=== PATIENT | female | born 1995 | race Caucasian/White ===

== ENCOUNTER 2017-09-22 08:35 | Emergency (ER) | payer MEDICAID ==
[~2017-09-22] VITALS: Ht 165.1 cm; Wt 123.0 kg
[~2017-09-22 08:35] MED LIST: ACET-2708 MT; DICL500C MT; MICO45CR75 VG; NYST15OI TP; ONDA4TAB5 MT; PNV1TABL76 MT
[2017-09-22] MEDS ORDERED: ACETAMINOPHEN WITH CODEINE 300/30MG TABLET PO STA (10:05)
[2017-09-22] MEDS ORDERED: ACETAMINOPHEN 325MG TABLET PO ONE (10:15)
[2017-09-22] MEDS ORDERED: CEPHALEXIN 500MG CAPSULE PO ONE (10:15)
[2017-09-22 10:58] LABS: BASOPHILS % 0.2 % (0.0-2.0); EOSINOPHILS % 0.4 % (0.0-5.0); HEMATOCRIT. 36.4 % (36.0-48.0); HEMOGLOBIN. 12.3 g/dL (12.0-16.0); LYMPHOCYTES % 16.8 % (20.0-50.0); MEAN CORPUSCULAR HEMOGLOBIN 30.6 pg (28.0-32.0); MEAN CORPUSCULAR VOLUME 90.4 fL (81.0-99.0); MEAN PLATELET VOLUME 8.7 fl (7.4-10.4); MONOCYTES % 6.4 % (2.0-8.0); NEUTROPHILS % 76.2 % (40.0-76.0); PLATELET 252 x1000/uL (130-400); RED BLOOD CELL COUNT 4.03 mill/uL (4.2-5.4); RED CELL DISTRIBUTION WIDTH 13.3 % (11.6-14.6)
[2017-09-22 11:02] LABS: CHLORIDE 104 mEq/L (98-107)
[2017-09-22 12:00] VITALS: BP 136/70
== END 2017-09-22 12:19 | disposition home or self-care (01) ==
LOC: ER 08:44
DX: L02.211 Cutaneous abscess of abdominal wall (principal); J45.909 Unspecified asthma, uncomplicated
CPT/HCPCS: 36415; 80053; 83605; 85025; 87040; 99284

== ENCOUNTER 2018-03-26 04:34 | Observation (INO) | payer MEDICAID ==
[~2018-03-26] VITALS: Ht 165.1 cm; Wt 140.6 kg
[~2018-03-26 04:34] MED LIST changes: -ACET-2708 MT; +CLIN300C11 PO; -DICL500C MT; -MICO45CR75 VG; -NYST15OI TP; -ONDA4TAB5 MT
== END 2018-03-26 05:45 | disposition home or self-care (01) ==
LOC: L&D 04:34
PROVIDERS: ADMIT Specialist; ATTEND Specialist
DX: O62.9 Abnormality of forces of labor, unspecified (principal); Z3A.37 37 weeks gestation of pregnancy
CPT/HCPCS: 99281; G0378

== ENCOUNTER 2018-04-10 17:29 | Observation (INO) | payer MEDICAID ==
[~2018-04-10] VITALS: Ht 165.1 cm; Wt 143.8 kg
[~2018-04-10 17:29] MED LIST changes: -CLIN300C11 PO
== END 2018-04-10 19:00 | disposition home or self-care (01) ==
LOC: L&D 17:29
PROVIDERS: ADMIT Obstetrics & Gynecology; ATTEND Obstetrics & Gynecology
DX: O62.9 Abnormality of forces of labor, unspecified (principal); Z3A.39 39 weeks gestation of pregnancy
CPT/HCPCS: G0378 ×3

== ENCOUNTER 2018-04-14 20:42 | Observation (INO) | payer MEDICAID ==
[~2018-04-14] VITALS: Ht 165.1 cm; Wt 143.8 kg
== END 2018-04-14 23:05 | disposition home or self-care (01) ==
LOC: 8 EST LDRP 20:42
PROVIDERS: ADMIT Specialist; ATTEND Specialist
DX: O48.0 Post-term pregnancy (principal); O62.9 Abnormality of forces of labor, unspecified; O26.893 Other specified pregnancy related conditions, third trimester; N89.8 Other specified noninflammatory disorders of vagina; Z3A.40 40 weeks gestation of pregnancy
CPT/HCPCS: 99281; G0378

== ENCOUNTER 2018-04-16 12:23 | Inpatient (IN) | payer MEDICAID ==
[~2018-04-16] VITALS: Ht 165.1 cm; Wt 144.2 kg
[2018-04-16] MEDS ORDERED: LIDOCAINE HCL 1% 20ML VIAL (Pyxis) INJ INFIL SCH (13:45)
[2018-04-16] MEDS ORDERED: NALOXONE HCL 0.4 MG/ML 1ML VIAL IM PRN (13:45)
[2018-04-16] MEDS ORDERED: CARBOPROST TROMETHAMINE 250 MCG/ML AMPUL IM PRN (13:45)
[2018-04-16] MEDS ORDERED: METHYLERGONOVINE MALEATE 0.2 MG/ML IM PRN (13:45)
[2018-04-16] MEDS: LACTATED RINGERS 1,000 ML IV SCH ×2 (14:07→20:43)
[2018-04-16 14:45] LABS: BASOPHILS % 0.2 % (0.0-2.0); EOSINOPHILS % 1.1 % (0.0-5.0); HEMATOCRIT. 38.3 % (36.0-48.0); LYMPHOCYTES % 25.1 % (20.0-50.0); MEAN PLATELET VOLUME 9.5 fl (7.4-10.4); MONOCYTES % 9.3 % (2.0-8.0); NEUTROPHILS % 64.3 % (40.0-76.0); PLATELET 181 x1000/uL (130-400); RED BLOOD CELL COUNT 4.07 mill/uL (4.2-5.4); RED CELL DISTRIBUTION WIDTH 14.8 % (11.6-14.6)
[2018-04-16 14:47] LABS: CLARITY URINE CLOUDY (CLEAR); COLOR URINE YELLOW (YELLOW); KETONES URINE NEGATIVE (NEGATIVE); LEUKOCYTE ESTERASE URINE NEGATIVE (NEGATIVE); NITRITE URINE NEGATIVE (NEGATIVE); OCCULT BLOOD URINE 1+ (NEGATIVE); PROTEIN URINE 3+ (NEGATIVE); SPECIFIC GRAVITY URINE 1.023 (1.005-1.030)
[2018-04-16 14:53] LABS: INR 0.9; PARTIAL THROMBOPLASTIN TIME 27.5 sec (23.4-31.0); PROTHROMBIN TIME 9.1 sec (9.1-11.1)
[2018-04-16 15:06] LABS: *AMPHETAMINES SCREEN URINE NEGATIVE (NEGATIVE); *BARBITURATES SCREEN URINE NEGATIVE (NEGATIVE); *BENZODIAZEPINES SCREEN URINE NEGATIVE (NEGATIVE); *COCAINE SCREEN URINE NEGATIVE (NEGATIVE); METHADONE URINE SCREEN NEGATIVE (NEGATIVE); OPIATES URINE SCREEN NEGATIVE (NEGATIVE)
[2018-04-16 15:07] LABS: CANNABINOID URINE SCREEN NEGATIVE (NEGATIVE); PHENCYCLIDINE URINE SCREEN NEGATIVE (NEGATIVE)
[2018-04-16 15:29] LABS: HEPATITIS B SURFACE ANTIGEN NEGATIVE
[2018-04-16] MEDS: MISOPROSTOL 100MCG TABLET VG SCH ×2 (17:00→21:54)
[2018-04-16] MEDS: BUTORPHANOL TARTRATE 2 MG/ML VIAL IV PRN (22:28)
[2018-04-17] MEDS: MISOPROSTOL 100MCG TABLET VG SCH (02:20)
[2018-04-17] MEDS: LACTATED RINGERS 1,000 ML IV SCH ×3 (04:52→09:43)
[2018-04-17] MEDS: BUTORPHANOL TARTRATE 2 MG/ML VIAL IV PRN (05:07)
[2018-04-17] MEDS: DEXT 5%/LR + PITOCIN 20UNITS/L 1,000 ML IV SCH (06:01)
[2018-04-17] MEDS ORDERED: BUPIVACAINE HCL/NS/PF EPIDURAL 100 ML EP ONE ×2 (08:01→21:22)
[2018-04-17] MEDS ORDERED: FENTANYL CITRATE/PF 50MCG/ML 5ML VIAL ONE (08:01)
[2018-04-17] MEDS ORDERED: BUPIVACAINE HCL/PF 0.25% (2.5MG/ML) 10ML ONE (08:01)
[2018-04-17] MEDS ORDERED: ONDANSETRON HCL 4MG/2ML INJ IV NR (09:00)
[2018-04-17] MEDS ORDERED: BUPIVACAINE HCL/NS/PF EPIDURAL 100 ML EP SCH (09:15)
[2018-04-17 14:14] LABS: BASOPHILS % 0.1 % (0.0-2.0); HEMATOCRIT. 39.6 % (36.0-48.0); HEMOGLOBIN. 13.3 g/dL (12.0-16.0); LYMPHOCYTES % 10.7 % (20.0-50.0); MEAN CORPUSCULAR HEMOGLOBIN 31.8 pg (28.0-32.0); MEAN PLATELET VOLUME 9.3 fl (7.4-10.4); MONOCYTES % 6.5 % (2.0-8.0); NEUTROPHILS % 82.7 % (40.0-76.0); PLATELET 183 x1000/uL (130-400); RED BLOOD CELL COUNT 4.17 mill/uL (4.2-5.4); RED CELL DISTRIBUTION WIDTH 14.7 % (11.6-14.6)
[2018-04-17 14:17] LABS: CHLORIDE 106 mEq/L (98-107)
[2018-04-17] MEDS ORDERED: LIDOCAINE HCL/PF 2% 20MG/ML 5 ML/VIAL ONE ×3 (14:20→20:15)
[2018-04-17 14:30] LABS: D-DIMER 3.77 mg/L FEU (<0.50); INR 0.9; PARTIAL THROMBOPLASTIN TIME 27.4 sec (23.4-31.0); PROTHROMBIN TIME 9.2 sec (9.1-11.1)
[2018-04-17] MEDS ORDERED: NALOXONE HCL 0.4 MG/ML 1ML VIAL IM PRN (14:30)
[2018-04-17] MEDS ORDERED: BUTORPHANOL TARTRATE 2 MG/ML VIAL IV PRN (14:30)
[2018-04-17] MEDS ORDERED: METHYLERGONOVINE MALEATE 0.2 MG/ML IM PRN (14:30)
[2018-04-17] MEDS ORDERED: CARBOPROST TROMETHAMINE 250 MCG/ML AMPUL IM PRN (14:30)
[2018-04-17] MEDS ORDERED: LIDOCAINE HCL 1% 20ML VIAL (Pyxis) INJ INFIL SCH (14:30)
[2018-04-17 14:48] LABS: CLARITY URINE CLEAR (CLEAR); COLOR URINE YELLOW (YELLOW); KETONES URINE NEGATIVE (NEGATIVE); LEUKOCYTE ESTERASE URINE NEGATIVE (NEGATIVE); NITRITE URINE NEGATIVE (NEGATIVE); OCCULT BLOOD URINE 1+ (NEGATIVE); PH URINE 7.5 (4.5-8.0); PROTEIN URINE 1+ (NEGATIVE); SPECIFIC GRAVITY URINE 1.008 (1.005-1.030); UROBILINOGEN URINE 0.2 E.U./dL (0.2-1.0)
[2018-04-17] MEDS ORDERED: MAGNESIUM 4 G PREMIX 100 ML IV NR (15:45)
[2018-04-17] MEDS ORDERED: FENTANYL CITRATE/PF 50MCG/ML 2ML VIAL ONE ×2 (15:49→21:05)
[2018-04-17] MEDS ORDERED: PENICILLIN G POTASSIUM 5 MMU in DEXT 5% WATER 100 ML IV NR (16:00)
[2018-04-17] MEDS: ACETAMINOPHEN 500MG TABLET PO PRN ×2 (16:16→23:49)
[2018-04-17] MEDS: MAGNESIUM 20 G PREMIX (L & D) 500 ML IV SCH (16:54)
[2018-04-17] MEDS: PENICILLIN G POTASSIUM 2.5 MMU in DEXTROSE 5% WATER 50 ML IV SCH ×2 (19:36→23:30)
[2018-04-17] MEDS ORDERED: LIDOCAINE HCL 2%/EPINEPHRINE/PF 10 ML VIAL ONE (22:17)
[2018-04-18] MEDS: MAGNESIUM 20 G PREMIX (L & D) 500 ML IV SCH ×2 (02:40→12:58)
[2018-04-18] MEDS: PENICILLIN G POTASSIUM 2.5 MMU in DEXTROSE 5% WATER 50 ML IV SCH ×4 (03:30→16:24)
[2018-04-18] MEDS ORDERED: BUPIVACAINE HCL/NS/PF EPIDURAL 100 ML EP ONE ×2 (03:41→10:02)
[2018-04-18] MEDS ORDERED: FENTANYL CITRATE/PF 50MCG/ML 2ML VIAL ONE ×2 (03:41→10:02)
[2018-04-18] MEDS ORDERED: LIDOCAINE HCL 2%/EPINEPHRINE/PF 10 ML VIAL ONE ×2 (06:10→11:45)
[2018-04-18] MEDS: ACETAMINOPHEN 500MG TABLET PO PRN ×2 (08:50→18:01)
[2018-04-18] MEDS ORDERED: MISOPROSTOL 200MCG TABLET ONE (13:06)
[2018-04-18] MEDS ORDERED: MISOPROSTOL 200MCG TABLET PO ONE (17:45)
[2018-04-18] MEDS: DEXT 5%/LR + PITOCIN 20UNITS/L 1,000 ML IV SCH ×2 (18:02→18:04)
[2018-04-18] MEDS ORDERED: DEXT 5%/LR + PITOCIN 20UNITS/L 1,000 ML IV SCH (18:28)
[2018-04-18] MEDS ORDERED: DIPHENHYDRAMINE 25MG CAPSULE PO PRN (18:30)
[2018-04-18] MEDS ORDERED: BENZOCAINE/LANOLIN/ALOE VERA SPRAY TOP PRN (18:30)
[2018-04-18] MEDS ORDERED: HEMORRHOIDAL SUPP PR PRN (18:30)
[2018-04-18] MEDS ORDERED: GLYCERIN/WITCH HAZEL LEAF MEDICATED PAD TOP PRN (18:30)
[2018-04-18] MEDS ORDERED: LANOLIN OINT 0.25 GM TUBE TOP PRN (18:30)
[2018-04-18] MEDS ORDERED: GENTAMICIN SULFATE 180 MG in SODIUM CHLORIDE 0.9% 100 ML IV NR (19:00)
[2018-04-18 20:23] LABS: HEMATOCRIT. 28.6 % (36.0-48.0); HEMOGLOBIN. 9.6 g/dL (12.0-16.0); MEAN CORPUSCULAR VOLUME 95.2 fL (81.0-99.0); MEAN PLATELET VOLUME 9.2 fl (7.4-10.4); PLATELET 146 x1000/uL (130-400); RED CELL DISTRIBUTION WIDTH 14.6 % (11.6-14.6)
[2018-04-18 20:48] LABS: PLATELET ESTIMATE NORMAL
[2018-04-18] MEDS: AMPICILLIN 2,000 MG in SODIUM CHLORIDE 0.9% 100 ML IV SCH (21:14)
[2018-04-18] MEDS ORDERED: MAGNESIUM 20 G PREMIX (L & D) 500 ML IV SCH (22:00)
[2018-04-18 23:10] VITALS: BP 122/69
[2018-04-18] MEDS: ACETAMINOPHEN WITH CODEINE 300/30MG TABLET PO PRN (23:28)
[2018-04-19] VITALS (7 sets, daily range): BP systolic 99–129; BP diastolic 48–64
[2018-04-19] MEDS: AMPICILLIN 2,000 MG in SODIUM CHLORIDE 0.9% 100 ML IV SCH ×4 (02:38→23:10)
[2018-04-19] MEDS: IBUPROFEN 800MG TABLET PO PRN ×2 (05:04→17:14)
[2018-04-19 06:50] LABS: BASOPHILS % 0.1 % (0.0-2.0); EOSINOPHILS % 0.1 % (0.0-5.0); HEMATOCRIT. 22.1 % (36.0-48.0); HEMOGLOBIN. 7.5 g/dL (12.0-16.0); LYMPHOCYTES % 13.3 % (20.0-50.0); MEAN CORPUSCULAR HEMOGLOBIN 32.2 pg (28.0-32.0); MEAN PLATELET VOLUME 9.1 fl (7.4-10.4); MONOCYTES % 2.8 % (2.0-8.0); NEUTROPHILS % 83.7 % (40.0-76.0); PLATELET 120 x1000/uL (130-400); RED BLOOD CELL COUNT 2.33 mill/uL (4.2-5.4); RED CELL DISTRIBUTION WIDTH 14.7 % (11.6-14.6)
[2018-04-19] MEDS ORDERED: GENTAMICIN 120MG PREMIX 100 ML IV SCH (07:30)
[2018-04-19] MEDS: PRENATAL VIT/FE FUMARATE/FA TABLET PO SCH (08:47)
[2018-04-19] MEDS: SIMETHICONE 80MG TABLET CHEW PO SCH ×4 (08:48→21:26)
[2018-04-19] MEDS: FERROUS SULFATE 325MG TABLET PO SCH ×3 (08:48→18:13)
[2018-04-19] MEDS ORDERED: MEDROXYPROGESTERONE ACETATE 150MG/ML VIAL IM NR (09:00)
[2018-04-19] MEDS ORDERED: TETANUS, DIPHTHERIA, PERTUSSIS VAC/PF 0.5ML (>7YR OLD) IM ONE (12:00)
[2018-04-19] MEDS: GENTAMICIN 120MG PREMIX 100 ML IV SCH (20:42)
[2018-04-19] MEDS ORDERED: INFLUENZA VIRUS VACCINE(AFLURIA) 0.5ML SYR IM ONE (21:00)
[2018-04-19] MEDS: DOCUSATE SODIUM 100MG CAPSULE PO SCH (21:26)
[2018-04-20] VITALS (7 sets, daily range): BP systolic 102–128; BP diastolic 48–63
[2018-04-20] MEDS: ACETAMINOPHEN WITH CODEINE 300/30MG TABLET PO PRN ×2 (00:22→20:23)
[2018-04-20] MEDS: AMPICILLIN 2,000 MG in SODIUM CHLORIDE 0.9% 100 ML IV SCH ×4 (04:56→22:37)
[2018-04-20 05:27] LABS: BASOPHILS % 0.2 % (0.0-2.0); EOSINOPHILS % 0.7 % (0.0-5.0); HEMATOCRIT. 21.2 % (36.0-48.0); LYMPHOCYTES % 15.9 % (20.0-50.0); MEAN CORPUSCULAR HEMOGLOBIN 31.6 pg (28.0-32.0); MEAN CORPUSCULAR VOLUME 95.6 fL (81.0-99.0); MEAN PLATELET VOLUME 9.2 fl (7.4-10.4); MONOCYTES % 2.8 % (2.0-8.0); NEUTROPHILS % 80.4 % (40.0-76.0); PLATELET 149 x1000/uL (130-400); RED BLOOD CELL COUNT 2.22 mill/uL (4.2-5.4); RED CELL DISTRIBUTION WIDTH 14.6 % (11.6-14.6)
[2018-04-20] MEDS: FERROUS SULFATE 325MG TABLET PO SCH ×3 (07:30→16:42)
[2018-04-20] MEDS: SIMETHICONE 80MG TABLET CHEW PO SCH ×4 (08:00→21:03)
[2018-04-20] MEDS: PRENATAL VIT/FE FUMARATE/FA TABLET PO SCH (09:00)
[2018-04-20] MEDS: GENTAMICIN 120MG PREMIX 100 ML IV SCH ×2 (09:00→21:02)
[2018-04-20] MEDS: ACETAMINOPHEN 500MG TABLET PO PRN (14:14)
[2018-04-20] MEDS ORDERED: MEDROXYPROGESTERONE ACETATE 150MG/ML VIAL IM NR (17:00)
[2018-04-20 17:51] LABS: BASOPHILS % 0.3 % (0.0-2.0); EOSINOPHILS % 0.8 % (0.0-5.0); HEMATOCRIT. 22.1 % (36.0-48.0); HEMOGLOBIN. 7.4 g/dL (12.0-16.0); LYMPHOCYTES % 18.9 % (20.0-50.0); MEAN CORPUSCULAR HEMOGLOBIN 31.6 pg (28.0-32.0); MEAN CORPUSCULAR VOLUME 94.7 fL (81.0-99.0); MEAN PLATELET VOLUME 8.9 fl (7.4-10.4); MONOCYTES % 4.6 % (2.0-8.0); NEUTROPHILS % 75.4 % (40.0-76.0); PLATELET 162 x1000/uL (130-400); RED BLOOD CELL COUNT 2.34 mill/uL (4.2-5.4); RED CELL DISTRIBUTION WIDTH 14.6 % (11.6-14.6)
[2018-04-20] MEDS: DOCUSATE SODIUM 100MG CAPSULE PO SCH (21:03)
[2018-04-21] MEDS: IBUPROFEN 800MG TABLET PO PRN (03:56)
[2018-04-21] MEDS: AMPICILLIN 2,000 MG in SODIUM CHLORIDE 0.9% 100 ML IV SCH (04:44)
[2018-04-21 05:58] VITALS: BP 103/53
[2018-04-21 08:10] VITALS: BP 117/57
[2018-04-21] MEDS: PRENATAL VIT/FE FUMARATE/FA TABLET PO SCH (09:00)
[2018-04-21] MEDS: GENTAMICIN 120MG PREMIX 100 ML IV SCH (09:00)
[2018-04-21] MEDS: FERROUS SULFATE 325MG TABLET PO SCH (09:00)
[2018-04-21] MEDS: SIMETHICONE 80MG TABLET CHEW PO SCH (09:01)
[2018-04-21] MEDS ORDERED: GENTAMICIN SULFATE 140 MG in SODIUM CHLORIDE 0.9% 100 ML IV SCH (21:00)
== END 2018-04-21 14:30 | disposition home or self-care (01) | DRG 542 ==
LOC: 8 EST LDRP 12:23 → OBSVTOIN 16:49 → 8EST 04-18 22:52
PROVIDERS: ADMIT Specialist; ATTEND Specialist
PROC: 0DQR0ZZ Repair Anal Sphincter, Open Approach (ICD-10-PCS; 2018-04-18)
PROC: 3E0R3BZ Introduction of Anesthetic Agent into Spinal Canal, Percutaneous Approach (ICD-10-PCS; 2018-04-18)
PROC: 00HU33Z Insertion of Infusion Device into Spinal Canal, Percutaneous Approach (ICD-10-PCS; 2018-04-18)
PROC: 10E0XZZ Delivery of Products of Conception, External Approach (ICD-10-PCS; principal; 2018-04-18 16:49)
PROC: 30233N1 Transfusion of Nonautologous Red Blood Cells into Peripheral Vein, Percutaneous Approach (ICD-10-PCS; 2018-04-20)
DX: O48.0 Post-term pregnancy (principal); R78.81 Bacteremia; E66.01 Morbid (severe) obesity due to excess calories; O72.1 Other immediate postpartum hemorrhage; O98.52 Other viral diseases complicating childbirth; O98.32 Other infections with a predominantly sexual mode of transmission complicating childbirth; J45.909 Unspecified asthma, uncomplicated; O36.63X0 Maternal care for excessive fetal growth, third trimester, not applicable or unspecified; O99.214 Obesity complicating childbirth; O99.52 Diseases of the respiratory system complicating childbirth; D64.9 Anemia, unspecified; Z3A.40 40 weeks gestation of pregnancy; Z37.0 Single live birth; B06.9 Rubella without complication; A63.0 Anogenital (venereal) warts; O70.20 Third degree perineal laceration during delivery, unspecified; O90.81 Anemia of the puerperium
CPT/HCPCS: 36415; 76805; 80170; 80305; 83735; 84550; 85379; 85384; 86592; 86703; 86762; 86850; 86900; 86920; 87070; 87077; 87186; 87340; 88307; 90715; 99281; G0378; J0290; J0595; J1050; J1580; J2405; J2540; J2590; J3010; J3475; J3490; J7040; J7050; J7060; J7120; P9016; Q0163

== ENCOUNTER 2018-05-08 20:42 | Emergency (ER) | payer MEDICAID ==
[~2018-05-08] VITALS: Ht 162.6 cm; Wt 100.0 kg
[2018-05-08 22:47] LABS: CLARITY URINE CLEAR (CLEAR); COLOR URINE YELLOW (YELLOW); KETONES URINE NEGATIVE (NEGATIVE); LEUKOCYTE ESTERASE URINE 3+ (NEGATIVE); NITRITE URINE NEGATIVE (NEGATIVE); OCCULT BLOOD URINE 1+ (NEGATIVE); PROTEIN URINE NEGATIVE (NEGATIVE); SPECIFIC GRAVITY URINE 1.012 (1.005-1.030); UROBILINOGEN URINE 0.2 E.U./dL (0.2-1.0)
[2018-05-08 22:48] LABS: BASOPHILS % 0.4 % (0.0-2.0); EOSINOPHILS % 2.8 % (0.0-5.0); HEMATOCRIT. 28.2 % (36.0-48.0); HEMOGLOBIN. 9.3 g/dL (12.0-16.0); LYMPHOCYTES % 28.5 % (20.0-50.0); MEAN CORPUSCULAR HEMOGLOBIN 30.6 pg (28.0-32.0); MEAN CORPUSCULAR VOLUME 93.2 fL (81.0-99.0); MEAN PLATELET VOLUME 8.5 fl (7.4-10.4); MONOCYTES % 8.3 % (2.0-8.0); PLATELET 371 x1000/uL (130-400); RED BLOOD CELL COUNT 3.03 mill/uL (4.2-5.4); RED CELL DISTRIBUTION WIDTH 14.8 % (11.6-14.6)
[2018-05-08 23:12] LABS: CHLORIDE 110 mEq/L (98-107)
[2018-05-09] MEDS ORDERED: HYDROCODONE/ACETAMINOPHEN 5/325MG TABLET PO ONE (01:15)
[2018-05-09] MEDS ORDERED: ACETAMINOPHEN 500MG TABLET PO ONE (01:45)
[2018-05-09 01:58] VITALS: BP 113/71
== END 2018-05-09 02:00 | disposition home or self-care (01) ==
LOC: ER 20:42
DX: K80.20 Calculus of gallbladder without cholecystitis without obstruction (principal); R06.00 Dyspnea, unspecified; R10.13 Epigastric pain; J45.909 Unspecified asthma, uncomplicated; Z79.899 Other long term (current) drug therapy; Z98.890 Other specified postprocedural states
CPT/HCPCS: 36415; 71045; 76705; 83880; 84484; 85379; 87077; 93005; 99284

== ENCOUNTER 2018-05-09 14:01 | Emergency (ER) | payer MEDICAID ==
[~2018-05-09] VITALS: Ht 167.6 cm; Wt 126.5 kg
[2018-05-09] MEDS ORDERED: ACETAMINOPHEN 325MG TABLET PO ONE (16:00)
[2018-05-09] MEDS ORDERED: IBUPROFEN 600MG TABLET PO ONE (16:00)
[2018-05-09] MEDS ORDERED: ONDANSETRON 4MG ODT PO ONE (16:00)
[2018-05-09 17:30] VITALS: BP 132/57
== END 2018-05-09 17:40 | disposition home or self-care (01) ==
LOC: ER 14:01
DX: O86.20 Urinary tract infection following delivery, unspecified (principal); O99.63 Diseases of the digestive system complicating the puerperium; K80.20 Calculus of gallbladder without cholecystitis without obstruction; O90.89 Other complications of the puerperium, not elsewhere classified; O99.53 Diseases of the respiratory system complicating the puerperium; J45.909 Unspecified asthma, uncomplicated; Z79.899 Other long term (current) drug therapy
CPT/HCPCS: 99284; Q0162